=== PATIENT | female | born 1970 ===

== ENCOUNTER 2016-10-22 13:16 | Emergency (ER) | payer OTHER ==
[2016-10-22 13:31] VITALS: RESP 20
[2016-10-22] MEDS ORDERED: Sodium Chloride 0.9% 1,000 ML IV ONE (13:47)
[2016-10-22] MEDS ORDERED: Sodium Chloride 0.9% 1,000 ML ONE (13:59)
[2016-10-22 14:07] LABS: BASO % 0.4 % (0.0-2.0); EOS # 0.1 K/uL (0.0-0.7); EOS % 1.1 % (0.0-4.0); HEMATOCRIT 39.7 % (34.0-47.0); LYMPH # 1.5 K/uL (1.0-4.3); LYMPH % 12.7 % (20.0-40.0); MEAN CELL VOLUME 82.6 fL (81.0-99.0); MEAN CORPUSCULAR HGB CONC 32.7 g/dL (33.0-37.0); MEAN PLATELET VOLUME 8.4 fL (7.2-11.7); MONO # 0.4 K/uL (0.0-0.8); MONO % 3.1 % (0.0-10.0); RED CELL DISTRIBUTION WIDTH 13.4 % (11.5-14.5); WHITE BLOOD COUNT 11.6 K/uL (4.8-10.8)
[2016-10-22 14:18] LABS: CHLORIDE 98 mmol/L (98-107); POTASSIUM 3.8 mmol/L (3.6-5.2); SODIUM 138 mmol/L (132-148)
[2016-10-22 14:20] LABS: ALB/GLOB RATIO 1.2 (1.0-2.1); ALKALINE PHOSPHATASE 71 U/L (38-126); AST/SGOT 28 U/L (14-36); BILIRUBIN,TOTAL 0.3 mg/dL (0.2-1.3); BLOOD UREA NITROGEN 13 mg/dL (7-17); CARBON DIOXIDE 26 mmol/L (22-30); GFR AFRICAN-AMERICAN > 60; TOTAL PROTEIN 8.1 g/dL (6.3-8.3)
[2016-10-22 14:21] LABS: ALT/SGPT 21 U/L (9-52); GLUCOSE,RANDOM 161 mg/dL (65-105)
[2016-10-22 14:22] LABS: CALCIUM 9.6 mg/dl (8.6-10.4)
[2016-10-22 14:34] LABS: RBC URINE 4 /hpf (0-3); URINE BACTERIA RARE (<OCC); URINE BILIRUBIN NEGATIVE (NEGATIVE); URINE BLOOD 2+ (NEGATIVE); URINE COLOR Yellow (YELLOW); URINE GLUCOSE (UA) NORMAL (Normal); URINE KETONE NEGATIVE (NEGATIVE); URINE LEUKOCYTE ESTERASE TRACE Leu/uL (Negative); URINE PROTEIN NEGATIVE (NEGATIVE); URINE UROBILINOGEN NORMAL mg/dL (0.2-1.0); WBC URINE 3 /hpf (0-5)
[2016-10-22] MEDS ORDERED: Iodixanol 320 MG/ML 100 ML BOTTLE IV ONE ×2 (15:44→15:53)
--- NOTE | 2016-10-22 15:48 | RAD ---
PROCEDURE: Radiographs of the chest and abdomen (obstructive series) HISTORY: abd pain COMPARISON: No prior. TECHNIQUE: AP radiograph of the chest, with upright and supine radiographs of the abdomen. FINDINGS: CHEST: Lungs: Clear. Cardiovascular: Normal size heart. No pulmonary vascular congestion. Pleura: No pleural fluid. No pneumothorax. Other findings: None. ABDOMEN AND PELVIS: Bowel: Moderate right stool retention. Paucity of left-sided bowel gas No evidence of mechanical obstruction. Free air: None. Bones: Bilateral sclerotic changes SI joint. Other findings: Hyperdense material projects contour in probably is within the stomach given its movement in change in contour clinical correlation regarding any ingestion is a suggested conceivably a calcified lymph node are also simulate this. There are linear hyperdensities projecting over the left abdomen left bowel contents which are not constant findings in the same position. Bowel contents versus artifact are considerations. Bilateral hemipelvic ossifications of varying size some rounded likely phleboliths other talar possibly fibroid related . IMPRESSION: No pulmonary infiltrate. Stool retention. No evidence of mechanical bowel obstruction. Other abdominal and the nonspecific for hyperdensities as detailed above .
[2016-10-22] MEDS ORDERED: Morphine 4 MG/ML VIAL ONE (16:01)
--- NOTE | 2016-10-22 17:07 | CT ---
PROCEDURE: CT Abdomen and Pelvis with contrast HISTORY: RLQ , ? AP vs R renal colic COMPARISON: 10/20/2015 TECHNIQUE: CT scan of the abdomen and pelvis was performed after intravenous administration of contrast. Oral contrast was not administered. Coronal and sagittal reformatted images were obtained. Contrast dose: 100 mL Visipaque Radiation dose: Total exam DLP = 415.53 mGy-cm. This CT exam was performed using one or more of the following dose reduction techniques: Automated exposure control, adjustment of the mA and/or kV according to patient size, and/or use of iterative reconstruction technique. FINDINGS: LOWER THORAX: The lung bases are clear. LIVER: The liver is normal in size and there is homogeneous enhancement without focal mass. There is no intra hepatic biliary ductal dilatation. GALLBLADDER AND BILE DUCTS: There are no calcified gallstones. PANCREAS: The pancreas is normal in size and there is homogeneous enhancement without focal mass or ductal dilatation. SPLEEN: The spleen is normal in size and there is homogeneous enhancement without focal mass. ADRENALS: Both adrenal glands are normal in size without discrete nodule. KIDNEYS AND URETERS: Both kidneys are normal in size and there is homogeneous enhancement without hydronephrosis or focal mass. VASCULATURE: Normal in apparent. No aortic aneurysm. BOWEL: The small bowel loops are normal in caliber. No obstruction. No gross mural thickening. The colon is unremarkable. APPENDIX: Normal appendix. PERITONEUM: No free fluid. No free air. LYMPH NODES: No enlarged lymph nodes. BLADDER: Grossly normal in appearance. REPRODUCTIVE: There is redemonstration of a large known dermoid cyst measuring approximately 8.7 x 8.5 cm, appears slightly larger since the prior examination when it measured 7.5 x 7.6 cm. BONES: No acute fracture. OTHER FINDINGS: None. IMPRESSION: No CT evidence for acute appendicitis. Redemonstration of a large midline dermoid cyst, which appears slightly larger than the prior examination. Gynecologic consultation is advised. No nephrolithiasis or hydronephrosis.
--- NOTE | 2016-10-22 17:14 | C.PDOC ---
History Of Present Illness 45 y/o female presents to the ED complaining of right sided abdominal pain that is colicy in nature x 2 days. She states it is very painful. Denies any fever, nausea, vomiting, diarrhea, back pain, urinary symptoms, chest pain, shortness of breath, or other complaints. Time Seen by Provider: 10/22/16 13:44 Chief Complaint (Nursing): Abdominal Pain History Per: Patient History/Exam Limitations: no limitations Onset/Duration Of Symptoms: Days (2), Persistent Current Symptoms Are (Timing): Still Present Location Of Pain/Discomfort: RUQ, RLQ Radiation Of Pain To:: None Quality Of Discomfort: Sharp Recent travel outside of the [place]: No Past Medical History Reviewed: Historical Data, Nursing Documentation, Vital Signs Vital Signs: Last Vital Signs Temp 97.5 F L 10/22/16 13:28 Pulse 95 H 10/22/16 16:05 Resp 20 10/22/16 16:05 BP 138/79 10/22/16 16:05 Pulse Ox 98 10/22/16 17:27 - Medical History PMH: No Chronic Diseases Surgical History: No Surg Hx Family History: States: Unknown Family Hx - Social History Hx Tobacco Use: No Hx Alcohol Use: No Hx Substance Use: No - Immunization History Hx Tetanus Toxoid Vaccination: No Hx Influenza Vaccination: No Hx Pneumococcal Vaccination: No Review Of Systems Except As Marked, All Systems Reviewed And Found Negative. Constitutional: Negative for: Fever Cardiovascular: Negative for: Chest Pain Respiratory: Negative for: Shortness of Breath Gastrointestinal: Positive for: Abdominal Pain (right sided). Negative for: Nausea, Vomiting, Diarrhea Genitourinary: Negative for: Dysuria, Hematuria Musculoskeletal: Negative for: Back Pain Physical Exam - Physical Exam Appears: Non-toxic, No Acute Distress Skin: Normal Color, Warm, Dry Head: Atraumatic, Normacephalic Eye(s): bilateral: Normal Inspection, PERRL Oral Mucosa: Moist Neck: Normal ROM, Supple Chest: Symmetrical, No Tenderness Cardiovascular: Rhythm Regular Respiratory: Normal Breath Sounds, No Rales, No Rhonchi, No Wheezing Gastrointestinal/Abdominal: Soft, Tenderness (right-sided), Other ((+) McBurney' s point tenderness; (-) Aditya's sign) Back: Normal Inspection, No CVA Tenderness Extremity: Normal ROM, No Swelling Neurological/Psych: Oriented x3, Normal Speech, Normal Cognition ED Course And Treatment - Laboratory Results Result Diagrams: 10/22/16 14:00 10/22/16 14:00 Lab Interpretation: Abnormal (+ mild elev glu, mild leukocytosis, UA neg, tox neg,) Urine POC: Negative O2 Sat by Pulse Oximetry: 98 (ra) Pulse Ox Interpretation: Normal - Radiology CXR: Interpreted by Me CXR Interpretation: Yes: No Acute Disease - Other Rad abd x 2 X-Ray: Interpreted by Me (++ stool R colon) CT Abd/Pelvis X-Ray: Viewed By Me, Read By Radiologist (RADHA ELMORE MD) Interpretation: IMPRESSION: No CT evidence for acute appendicitis. Redemonstration of a large midline dermoid cyst, which appears slightly larger than the prior examination. Gynecologic consultation is advised. No nephrolithiasis or hydronephrosis. Reevaluation Time: 17:14 Reassessment Condition: Improved Medical Decision Making Medical Decision Making: Plan: * CT Abd/Pelvis * X-Ray, Abdomen * Blood Work * Urinalysis * Urine HCG * Toradol IVP, Morphine IVP, IV Fluids R colon constipation, old and larger dermoid cyst L ovarian area, no AP (by CT) Disposition Doctor Will See Patient In The: Office Counseled Patient/Family Regarding: Studies Performed, Diagnosis - Disposition Referrals: Jan Todd MD [Medical Doctor] - Disposition: HOME/ ROUTINE Disposition Time: 17:14 Condition: GOOD Additional Instructions: Drink a laxative now (recommend a bottle of Mag Citrate) and re-evaluate your abdominal discomfort after using the bathroom 2-3 times. Continue Colace (stool softner) twice a day to help prevent constipation. eat more fresh fruits and vegetables and avoid too much rice, bread and cooked vegetables. Follow-up with Dr. Todd as needed. See OBGYN about the Dermoid Cyst noted near your L ovary (old finding) Instructions: Constipation (ED) - Clinical Impression Clinical Impression: Abdominal pain - Scribe Statement The provider has reviewed the documentation as recorded by the Scribe (Veronica Portillo) Provider Attestation: All medical record entries made by the Scribe were at my direction and personally dictated by me. I have reviewed the chart and agree that the record accurately reflects my personal performance of the history, physical exam, medical decision making, and the department course for this patient. I have also personally directed, reviewed, and agree with the discharge instructions and disposition.
[2016-10-22 17:38] VITALS: BP 124/79; PULSE 78; TEMP 98; O2SAT 99
== END 2016-10-22 17:37 | disposition home or self-care (01) ==
LOC: C.ER 13:16
DX: K59.00 Constipation, unspecified (principal); R10.84 Generalized abdominal pain
CPT/HCPCS: 74022; 74177; 80053; 81001; 83690; 84703; 85025; 96361; 96374; 96375; 99284; G0480; J1885; J2270; J7040; Q9967

== ENCOUNTER 2016-12-23 06:50 | Inpatient (IN) | payer OTHER ==
[2016-12-05 09:23] VITALS: BMI 24.7
[2016-12-23] MEDS ORDERED: Midazolam 2 MG/2 ML VIAL ONE (07:45)
[2016-12-23] MEDS ORDERED: Lactated Ringer's 1,000 ML IV ONE ×2 (07:45→09:26)
[2016-12-23] MEDS ORDERED: Propofol 10 mg/ml Inj (20 ML) ONE (07:46)
[2016-12-23] MEDS ORDERED: Bupivacaine HCl 0.5% PF (10 ml) Inj ONE (07:57)
[2016-12-23] MEDS ORDERED: cefOXitin IV 2 gm in Dextrose 2 GM/50 ML BAG IVPB ONE (07:57)
[2016-12-23] MEDS ORDERED: Phenylephrine 10 mg/ml Inj ONE (09:18)
[2016-12-23] MEDS ORDERED: Lidocaine Hydrochloride 5 ML INJ ONE (09:18)
[2016-12-23] MEDS ORDERED: Neostigmine Methylsulfate 3mg/3ml Syringe IV ONE (09:19)
[2016-12-23] MEDS ORDERED: DiphenhydrAMINE 50 mg/ml Inj IVP PRN (09:42)
[2016-12-23] MEDS ORDERED: Oxycodone/Acetaminophen 5/325 mg Tab PO PRN (10:02)
--- NOTE | 2016-12-23 10:02 | PCM.SURG1 ---
Surgeon's Initial Post Op Note - Surgeon's Notes Surgeon: dr velez [employer] Counter Person: Dr SAMS Type of Anesthesia: General LMA Anesthesia Administered By: DR BACH Pre-Operative Diagnosis: 46 yr woith pelvic pain/right ovarian cyst Operative Findings: see the op reoprt Post-Operative Diagnosis: same with luz elena Operation Performed: diagnosic laproscopy/right salpingooophrectomy/FRANK Specimen/Specimens Removed: right ovaey and tube. pelvic washings Estimated Blood Loss: EBL {In ML}: 350 Blood Products Given: N/A Drains Used: No Drains Post-Op Condition: Good Date of Surgery/Procedure: 12/23/16 Time of Surgery/Procedure: 10:00
[2016-12-23] MEDS: HYDROmorphone 0.5 mg/0.5 ml ISec IVP PRN ×3 (10:10→11:00)
[2016-12-23] MEDS ORDERED: Lactated Ringer's 1,000 ML IV SCH (10:15)
[2016-12-23] MEDS ORDERED: cefOXitin IV 2 gm in Dextrose 2 GM/50 ML BAG IVPB SCH (11:00)
[2016-12-23] MEDS ORDERED: Morphine Monoject Barrel PCA 1mg/ml IV PRN (11:45)
[2016-12-23] MEDS: cefOXitin IV 2 gm in Dextrose 2 GM/50 ML BAG IVPB SCH ×2 (15:07→23:48)
[2016-12-24] MEDS: cefOXitin IV 2 gm in Dextrose 2 GM/50 ML BAG IVPB SCH (08:19)
[2016-12-24 08:44] LABS: HEMATOCRIT 36.1 % (34.0-47.0); MEAN CELL VOLUME 81.7 fL (81.0-99.0); MEAN CORPUSCULAR HEMOGLOBIN 26.2 pg (27.0-31.0); MEAN CORPUSCULAR HGB CONC 32.1 g/dL (33.0-37.0); RED CELL DISTRIBUTION WIDTH 13.8 % (11.5-14.5); WHITE BLOOD COUNT 14.1 K/uL (4.8-10.8)
[2016-12-24 08:45] LABS: MEAN PLATELET VOLUME 8.7 fL (7.2-11.7)
--- NOTE | 2016-12-24 11:47 | CP.PCM.PN ---
Subjective - Date & Time of Evaluation Date of Evaluation: 12/24/16 Time of Evaluation: 11:00 - Subjective Subjective: pt was seen at bed side. feelsok, pain under control, no n/v, toleratying deit, voidingh,no vb, no flatus abd soft, non ten incision clean and dry Objective - Vital Signs/Intake and Output Vital Signs (last 24 hours): Temp Pulse Resp BP Pulse Ox 97.9 F 80 18 98/68 L 100 12/24/16 08:00 12/24/16 08:00 12/24/16 08:00 12/24/16 08:00 12/24/16 08:00 Intake and Output: 12/24/16 12/24/16 06:59 18:59 Intake Total 360 Output Total 1999 Balance -1999 360 - Medications Medications: Current Medications Diphenhydramine HCl (Benadryl) 25 mg IVP Q6 PRN PRN Reason: Itching / Pruritus Lactated Ringer's (Lactated Ringer's) 1,000 mls @ 125 mls/hr IV .Q8H CURTIS Last Admin: 12/24/16 04:35 Dose: 125 mls/hr Ibuprofen (Motrin Tab) 600 mg PO Q6 PRN PRN Reason: Pain, Mild (1-3) Morphine Sulfate/Sodium Chloride (Morphine Protective Signal Superintendent Monoject Barrel) 1 mg IV Q4H PRN ; Protocol PRN Reason: Pain, severe (8-10) Last Admin: 12/23/16 11:45 Dose: 1 mg Ondansetron HCl (Zofran Inj) 4 mg IVP ONCE PRN PRN Reason: Nausea/Vomiting Oxycodone/Acetaminophen (Percocet 5/325 Mg Tab) 1 tab PO Q4 PRN PRN Reason: Pain, moderate (4-7) Stop: 12/26/16 10:03 Oxycodone/Acetaminophen (Percocet 5/325 Mg Tab) 2 tab PO Q6H PRN PRN Reason: Pain, severe (8-10) Stop: 12/27/16 08:01 - Labs Labs: 12/24/16 08:37 Assessment and Plan - Assessment and Plan (Free Text) Assessment: 46 yr s/p rso/juli Plan: plan cmp] cont pain management encourage ambulation cont post op care
[2016-12-24] MEDS: Oxycodone/Acetaminophen 5/325 mg Tab PO PRN (12:17)
[2016-12-24 16:06] VITALS: RESP 20
[2016-12-24 18:49] LABS: CHLORIDE 102 mmol/L (98-107)
[2016-12-24 18:50] LABS: POTASSIUM 3.5 mmol/L (3.6-5.2); SODIUM 135 mmol/L (132-148)
[2016-12-24 18:52] LABS: ALB/GLOB RATIO 0.9 (1.0-2.1); ALKALINE PHOSPHATASE 54 U/L (38-126); AST/SGOT 19 U/L (14-36); BILIRUBIN,TOTAL 0.6 mg/dL (0.2-1.3); CARBON DIOXIDE 26 mmol/L (22-30); GFR AFRICAN-AMERICAN > 60; TOTAL PROTEIN 6.3 g/dL (6.3-8.3)
[2016-12-24 18:53] LABS: ALT/SGPT 12 U/L (9-52); BLOOD UREA NITROGEN 8 mg/dL (7-17); CALCIUM 8.7 mg/dl (8.6-10.4); GLUCOSE,RANDOM 111 mg/dL (65-105)
[2016-12-24 20:35] VITALS: PULSE 83
[2016-12-24] MEDS: Potassium Chloride 20 mEq ER Tab PO SCH (21:13)
--- NOTE | 2016-12-25 08:02 | CP.PCM.PN ---
Subjective - Date & Time of Evaluation Date of Evaluation: 12/25/16 Time of Evaluation: 08:00 - Subjective Subjective: pt was seen at bed side, pain under control,no n/v, tolerating deit, voiding,no vb, flatus+ abd incision min bleeding.steri stris removed. cleaned with h2o2. dressing applied k 3.5 12/24 s/p kdur Objective - Vital Signs/Intake and Output Vital Signs (last 24 hours): Temp Pulse Resp BP Pulse Ox 97.6 F 83 20 85/56 L 98 12/25/16 00:00 12/25/16 00:00 12/25/16 00:00 12/25/16 00:00 12/25/16 00:00 - Medications Medications: Current Medications Diphenhydramine HCl (Benadryl) 25 mg IVP Q6 PRN PRN Reason: Itching / Pruritus Lactated Ringer's (Lactated Ringer's) 1,000 mls @ 125 mls/hr IV .Q8H CURTIS Last Admin: 12/24/16 04:35 Dose: 125 mls/hr Ibuprofen (Motrin Tab) 600 mg PO Q6 PRN PRN Reason: Pain, Mild (1-3) Last Admin: 12/24/16 16:22 Dose: 600 mg Morphine Sulfate/Sodium Chloride (Morphine Heavy Line Technician Monoject Barrel) 1 mg IV Q4H PRN ; Protocol PRN Reason: Pain, severe (8-10) Last Admin: 12/23/16 11:45 Dose: 1 mg Ondansetron HCl (Zofran Inj) 4 mg IVP ONCE PRN PRN Reason: Nausea/Vomiting Oxycodone/Acetaminophen (Percocet 5/325 Mg Tab) 1 tab PO Q4 PRN PRN Reason: Pain, moderate (4-7) Stop: 12/26/16 10:03 Oxycodone/Acetaminophen (Percocet 5/325 Mg Tab) 2 tab PO Q6H PRN PRN Reason: Pain, severe (8-10) Stop: 12/27/16 08:01 Last Admin: 12/24/16 12:17 Dose: 2 tab Potassium Chloride (K-Dur 20 Meq Er Tab) 20 meq PO DAILY CURTIS Last Admin: 12/24/16 21:13 Dose: 20 meq - Labs Labs: 12/24/16 08:37 12/24/16 18:20 - Constitutional Appears: Well Assessment and Plan - Assessment and Plan (Free Text) Assessment: 46 yr s/p ex lap rso/juli Plan: plan repeat cmp. once k normal dc home no sex percocet, prn f/u in office in 10 days if any fever call pmd
[2016-12-25 08:06] VITALS: BP 109/78; TEMP 98.9; O2SAT 100
--- NOTE | 2016-12-25 08:07 | CP.PCM.DIS ---
Provider - Provider Date of Admission: 12/23/16 10:02 Attending physician: Shukri Charles MD Time Spent in preparation of Discharge (in minutes): 20 Diagnosis - Discharge Diagnosis (1) S/P exploratory laparotomy Status: Acute Hospital Course - Lab Results Lab Results: Most Recent Lab Values WBC 14.1 K/uL (4.8-10.8) H 12/24/16 08:37 RBC 4.42 Mil/uL (3.80-5.20) 12/24/16 08:37 Hgb 11.6 g/dL (11.0-16.0) 12/24/16 08:37 Hct 36.1 % (34.0-47.0) 12/24/16 08:37 MCV 81.7 fL (81.0-99.0) 12/24/16 08:37 MCH 26.2 pg (27.0-31.0) L 12/24/16 08:37 MCHC 32.1 g/dL (33.0-37.0) L 12/24/16 08:37 RDW 13.8 % (11.5-14.5) 12/24/16 08:37 Plt Count 292 K/uL (130-400) 12/24/16 08:37 MPV 8.7 fL (7.2-11.7) 12/24/16 08:37 Sodium 135 mmol/L (132-148) 12/24/16 18:20 Potassium 3.5 mmol/L (3.6-5.2) L 12/24/16 18:20 Chloride 102 mmol/L (98-107) 12/24/16 18:20 Carbon Dioxide 26 mmol/L (22-30) 12/24/16 18:20 Anion Gap 11 (10-20) 12/24/16 18:20 BUN 8 mg/dL (7-17) 12/24/16 18:20 Creatinine 0.5 MG/DL (0.7-1.2) L 12/24/16 18:20 Est GFR ( Amer) > 60 12/24/16 18:20 Est GFR (Non-Af Amer) > 60 12/24/16 18:20 Random Glucose 111 mg/dL (65-105) H 12/24/16 18:20 Calcium 8.7 mg/dl (8.6-10.4) 12/24/16 18:20 Total Bilirubin 0.6 mg/dL (0.2-1.3) 12/24/16 18:20 AST 19 U/L (14-36) 12/24/16 18:20 ALT 12 U/L (9-52) 12/24/16 18:20 Alkaline Phosphatase 54 U/L (38-126) 12/24/16 18:20 Total Protein 6.3 g/dL (6.3-8.3) 12/24/16 18:20 Albumin 3.0 g/dL (3.5-5.0) L D 12/24/16 18:20 Globulin 3.3 gm/dL (2.2-3.9) 12/24/16 18:20 Albumin/Globulin Ratio 0.9 (1.0-2.1) L 12/24/16 18:20 Discharge Plan - Discharge Medications Prescriptions: Cephalexin [Keflex] 500 mg PO BID #10 capsule Ibuprofen [Motrin Tab] 800 mg PO Q6 #40 tab oxyCODONE/Acetaminophen [Percocet 5/325 mg Tab] 1 ea PO Q6 #20 tab NS - Follow Up Plan Condition: GOOD Disposition: HOME/ ROUTINE Instructions: Acute Abdominal Pain (DC), Acute Abdominal Pain (GEN)
[2016-12-25 08:35] LABS: BASO # 0.1 K/uL (0.0-0.2); BASO % 0.5 % (0.0-2.0); EOS # 0.4 K/uL (0.0-0.7); EOS % 3.4 % (0.0-4.0); HEMATOCRIT 34.7 % (34.0-47.0); LYMPH # 1.6 K/uL (1.0-4.3); LYMPH % 14.2 % (20.0-40.0); MEAN CELL VOLUME 82.5 fL (81.0-99.0); MEAN CORPUSCULAR HEMOGLOBIN 26.7 pg (27.0-31.0); MEAN CORPUSCULAR HGB CONC 32.4 g/dL (33.0-37.0); MEAN PLATELET VOLUME 8.4 fL (7.2-11.7); MONO # 0.6 K/uL (0.0-0.8); MONO % 5.1 % (0.0-10.0); RED CELL DISTRIBUTION WIDTH 14.1 % (11.5-14.5); WHITE BLOOD COUNT 11.1 K/uL (4.8-10.8)
[2016-12-25 08:44] LABS: CHLORIDE 103 mmol/L (98-107); SODIUM 138 mmol/L (132-148)
[2016-12-25 08:45] LABS: POTASSIUM 3.9 mmol/L (3.6-5.2)
[2016-12-25 08:47] LABS: ALKALINE PHOSPHATASE 62 U/L (38-126); ALT/SGPT 18 U/L (9-52); AST/SGOT 21 U/L (14-36); BILIRUBIN,TOTAL 0.7 mg/dL (0.2-1.3); BLOOD UREA NITROGEN 8 mg/dL (7-17); CARBON DIOXIDE 26 mmol/L (22-30); GFR AFRICAN-AMERICAN > 60; GLUCOSE,RANDOM 102 mg/dL (65-105); TOTAL PROTEIN 6.9 g/dL (6.3-8.3)
[2016-12-25 08:48] LABS: CALCIUM 8.7 mg/dl (8.6-10.4)
[2016-12-25] MEDS: Oxycodone/Acetaminophen 5/325 mg Tab PO PRN (08:58)
[2016-12-25] MEDS: Potassium Chloride 20 mEq ER Tab PO SCH (09:00)
--- NOTE | 2016-12-26 09:54 | PQF GENQUE ---
This form is a permanent part of the medical record Dr. Charles, Please clarify if patient was treated for hypokalemia. Lab work showed potassium level low. Clarification of your documentation is requested to better reflect the severity of illness and intensity of treatment of your patient. Indicators present [] Specify: [] [] Specify: [] [] Specify: [] [] Specify: [] Location in the medical record that reflects the above clinical findings: [] Treatment Provided: [] PHYSICIAN'S RESPONSE Based on your medical judgment of the clinical indicators outlined above please clarify the following: [] Practitioner response [] If unable to determine, please check the box, sign and date. Present On Admission (POA) Indicator: [] Present at the time of admission [] Not present at the time of admission [] Clinically Undetermined In responding to this query, please exercise your independent professional judgment. The fact that a question is asked does not imply that any particular answer is desired or expected. Thank you for your clarification on this documentation. If you have any questions please call:[ ] * Thank you, [ ] linseed oil order filler DREW
--- NOTE | 2016-12-27 09:40 | PCM.OP ---
Operative Report - Operative Report Date of Surgery/Procedure: 12/23/16 Time of Surgery/Procedure: 08:00 Surgeon: dr velez Field Technical Assistant: dr bailey throught out the case for retraction/exposur Anesthesia/Sedation: dr ramirez/ with lma Pre-Operative Diagnosis: 46 yr with pelvic pain and right [id number] cyst Post-Operative Diagnosis: same Indication for Surgery: 46 yr with right ovarian cyst/pelvic pain Operative Findings: diagnostic lap/exlporatory right salpingooophractomy/lysis of adhesions Procedure/Operation Description: after informed consent pt was brought to the room. gneral anesthesia given.pt was prepped and draped in stirrups. aparicio cather was inserted. exam under anthesia ut 7 weeks size, right adenxal mass. humi was inseerted. at the site of umblicus 10 cc marciane given. incision made. fascia held with koker amnd held with 2 vucyl. per excised. hernadez was placed. gas started. on visualisation right side pelvic mass adherent to omentum nd bowel. descion made to open . fascia eitan at the belly button. skin closed with monocyl. hum removed.at the site of previous incision, incision was made with knife. sub cutaneous was cut with bovie. fasicia excised with clifford scissor on both side. rectal muscle was at the site of umblicus and than public bone. peritone was lift with alls and cut with anthony scissor. we went oit to cavity. bladder blade was placed. right ovarian mass for seen adherent to bowel and omentum dificult to ertrorise.self retaining retractor was bleed.adhesion was removed with anthony sixzzor and pushed with spong stick on both side. ip was visualised. window made. two hynnbe retractor used.cut and tyed with 1 vicyl. mass removed and send intact. lot of irrigation done.dione cleand.it was hemostatic . no bleeding.surgicel placed and flosel used. . gutter cleare ofclor. peritoneium repaired with 2 vicyl. incision clean and dry. rectus muscle closed with 2 cvicryl.. fascis closed with 1 vicyl. lot of irrigation done. sub q with interuppted 0 vicyl.skin closed eith 4 monocyl straigh needle. pt tolersted the procedure well.no com. bl 800 cc Estimated Blood Loss: 350 Blood Replaced: none Sponge/Instrument Count: correct x 2 Complications: none Specimen: right ovary/tube Discharge & Condition: stable
== END 2016-12-25 15:15 | disposition home or self-care (01) | DRG 361 ==
LOC: C.SDS 06:50 → C.9S 10:02 → C.4M 11:44
PROVIDERS: ADMIT Obstetrics & Gynecology; ATTEND Obstetrics & Gynecology
PROC: 0UT54ZZ Resection of Right Fallopian Tube, Percutaneous Endoscopic Approach (ICD-10-PCS; principal; 2016-12-23 08:45)
PROC: 0UT04ZZ Resection of Right Ovary, Percutaneous Endoscopic Approach (ICD-10-PCS; 2016-12-23 08:45)
DX: N83.201 Unspecified ovarian cyst, right side (principal); E87.6 Hypokalemia; N73.6 Female pelvic peritoneal adhesions (postinfective)

== ENCOUNTER 2018-08-17 13:39 | Outpatient (CLI) | payer SELFPAY | END 2018-08-17 13:40 | disposition home or self-care (01) | LOC: C.MAMMO 13:39 | DX: N63.0 Unspecified lump in unspecified breast (principal) ==